=== PATIENT | female | born 1945 | race Caucasian/White ===

== ENCOUNTER 2018-01-24 13:45 | Outpatient (CLI) | payer MEDICARE | END 2018-01-24 13:46 | disposition home or self-care (01) | LOC: BICMAMMO 13:45 | PROVIDERS: ATTEND Internal Medicine | DX: Z12.31 Encounter for screening mammogram for malignant neoplasm of breast (principal); Z80.3 Family history of malignant neoplasm of breast | CPT/HCPCS: 77063; 77067 ==

== ENCOUNTER 2018-10-16 13:02 | Outpatient (CLI) | payer MEDICARE ==
--- NOTE | 2018-10-16 15:49 | MRI ---
MRI RIGHT SHOULDER WITHOUT CONTRAST 10/16/18 HISTORY: M25.511 - Right shoulder pain. COMPARISON: None. FINDINGS: Biceps tendon: There is extra-articular biceps tendinosis with interstitial tearing of the intra-nakul cular tendon. Labrum: There is tearing throughout the superior labrum anterior and posterior to the biceps tendon. Rotator cuff: Mild tendinosis of the supraspinatus and infraspinatus tendons. Mild bursal surface str ain supraspinatus tendon. No full thickness perforation. Bones: Subcortical cyst formation of the footprint of the greater tuberosity. Normal glenoid version. Old humeral neck fracture. There is lateral downsloping of the acromion near the subacromial space. Soft tissues: Low grade subacromial subdeltoid bursa effusion. Muscles: Muscle signal and bulk is normal. IMPRESSION: 1. Moderate intra-articular tendinosis biceps tendon with interstitial delamination type tear. 2. Superior labral tear anterior and posterior to the biceps labral anchor. 3. Mild downsloping of the acromion with narrowing of the subacrominal space with small subacrom ial subdeltoid bursal effusion and mild bursal surface fraying supraspinatus tendon. 4. Mild tendinosis supraspinatus and infraspinatus tendons without a full thickness perforation. 5. Healed humeral neck fracture. POS: TPC
== END 2018-10-16 13:03 | disposition home or self-care (01) ==
LOC: BICMRI 13:02
PROVIDERS: ATTEND Orthopaedic Surgery
DX: M25.511 Pain in right shoulder (principal); S43.401A Unspecified sprain of right shoulder joint, initial encounter; M75.91 Shoulder lesion, unspecified, right shoulder; M25.411 Effusion, right shoulder; Z87.81 Personal history of (healed) traumatic fracture

== ENCOUNTER 2018-12-14 00:12 | Outpatient (CLI) | payer MEDICARE ==
[2018-12-14 13:10] LABS: Bilirubin Negative (Negative); Blood, Urine Negative (Negative); Clarity CLEAR (Clear); Glucose, Urine (Dipstick) Negative (Negative); Leukocyte Negative (Negative); Nitrite Negative (Negative); Protein, Urine (Dipstick) Negative (Neg-Trace); Urobilinogen 0.2 mg/dL (0.2-1.0)
[2018-12-14 13:12] LABS: Bacteria/HPF None Seen HPF (None Seen); Hyaline Casts/LPF 0-3 HYALINE CAST LPF (0-3 Hyaline); Pathc Cast-AUWi Flag 0.13 (0-2.49); RBC/HPF 0-3 HPF (0-3); Squamous Epithelial None Seen HPF (0-3); WBC/HPF None Seen HPF (0-3)
== END 2018-12-14 00:13 | disposition home or self-care (01) ==
LOC: LABBT 00:12
PROVIDERS: ATTEND Orthopaedic Surgery
DX: Z01.818 Encounter for other preprocedural examination (principal); M17.12 Unilateral primary osteoarthritis, left knee
CPT/HCPCS: 81001; 87081; 93005; 93010

== ENCOUNTER 2018-12-19 12:01 | Outpatient (CLI) | payer MEDICARE ==
[2018-12-19 12:42] LABS: #Basophils 0.1 thou/uL (0.0-0.2); #Eosinphils 0.2 thou/uL (0.0-0.7); #Lymphocytes 2.8 thou/uL (1.20-3.40); #Monocytes 0.9 thou/uL (0.11-0.59); #Neutrophils 5.7 thou/uL (1.40-6.50); %Basophils 0.8 % (0.0-1.0); %Eosinophils 2.5 % (0.0-10.0); %Lymphocytes 28.8 % (21.0-51.0); %Neutrophils 58.9 % (42.0-75.0); Hemoglobin 14.7 g/dL (12.0-16.0); Mean Corpuscular HGB CONC 32.7 g/dL (32.0-36.0); Mean Corpuscular Hemoglobin 33.9 pg (27.0-31.0); Mean Platelet Volume 7.5 fL (7.4-10.4); Platelet Count 283 thou/uL (130-400); RBC Distribution Width 11.2 % (11.5-14.5); Red Blood Cell (RBC) Count 4.33 mill/uL (4.20-5.40); White Blood Cell (WBC) Count 9.7 thou/uL (4.8-10.8)
[2018-12-19 12:47] LABS: INR-International Normal Ratio 0.9; Prothrombin Time 12.3 SEC (12.0-14.7)
[2018-12-19 13:02] LABS: Anion Gap 15 mmol/L (10-20); BUN (Urea Nitrogen) 16 mg/dL (9.8-20.1); Calc. Creatinine Clearance 0 mL/min (70-130); Calcium 9.8 mg/dL (7.8-10.44); Carbon Dioxide 27 mmol/L (23-31); Chloride 100 mmol/L (98-107); Estimated GFR-MDRD 69; Glucose 72 mg/dL (83-110); Potassium 4.7 mmol/L (3.5-5.1); Sodium 137 mmol/L (136-145)
== END 2018-12-19 12:02 | disposition home or self-care (01) ==
LOC: LABBT 12:01
PROVIDERS: ATTEND Orthopaedic Surgery
DX: Z01.812 Encounter for preprocedural laboratory examination (principal); M17.12 Unilateral primary osteoarthritis, left knee
CPT/HCPCS: 80048; 85025; 85610

== ENCOUNTER 2018-12-26 05:35 | Day surgery (SDC) | payer MEDICARE ==
[2018-12-26] MEDS ORDERED: Tranexamic Acid 1,000 MG/10 ML VIAL ONE (06:04)
[2018-12-26] MEDS ORDERED: Sodium Chloride 0.9% 100 ML ONE (06:04)
[2018-12-26] MEDS ORDERED: Fentanyl 100 MCG/2 ML VIAL ONE ×3 (06:24→09:58)
[2018-12-26] MEDS ORDERED: Midazolam HCl 2 mg/2 ml Vial ONE (06:24)
[2018-12-26] MEDS ORDERED: HYDROcodone/Acetaminophen 10/325 mg Tablet PO PRN (06:49)
[2018-12-26] MEDS ORDERED: traMADol HCl 50 MG TAB PO PRN ×2 (06:49)
[2018-12-26] MEDS ORDERED: Zolpidem Tartrate 5 MG TAB PO PRN ×2 (06:49→06:57)
[2018-12-26] MEDS ORDERED: Promethazine HCl 25 MG/ML VIAL IM PRN ×3 (06:49→09:02)
[2018-12-26] MEDS ORDERED: Fentanyl 100 MCG/2 ML VIAL IV PRN (06:49)
[2018-12-26] MEDS ORDERED: Acetaminophen 325 MG TAB PO PRN (06:57)
[2018-12-26] MEDS ORDERED: diphenhydrAMINE 25 MG CAP PO PRN (06:57)
[2018-12-26] MEDS ORDERED: Morphine 10 MG/ML VIAL ONE (08:00)
[2018-12-26] MEDS ORDERED: Ondansetron HCl/PF 4 MG/2 ML Vial IVP PRN (09:02)
[2018-12-26] MEDS ORDERED: PACU-Morphine 4MG/ML VIAL SLOW IVP PRN (09:02)
[2018-12-26] MEDS ORDERED: Promethazine HCl 25 MG/ML VIAL SLOW IVP PRN (09:02)
[2018-12-26] MEDS ORDERED: Meperidine HCl/PF 25 MG/ML VIAL ONE (09:21)
--- NOTE | 2018-12-26 10:30 | RAD ---
LEFT KNEE TWO VIEWS: History: Total knee replacement, post-operative. FINDINGS/IMPRESSION: Post-operative changes are noted. Total knee arthroplasty is in good position and alignment. Soft tis luz air is present. POS: TPC
[2018-12-26] MEDS: CEFAZOLIN 2 GM in Premix Bag 1 BAG IVPB SCH ×2 (10:55→15:00)
[2018-12-26] MEDS: Sodium Chloride 0.9% 1,000 ML IV SCH ×2 (10:55→15:13)
[2018-12-26] MEDS: Aspirin 81 mg Enteric Coated Tablet PO SCH ×2 (10:55→21:53)
[2018-12-26] MEDS: Ferrous Gluconate 324 MG TAB PO SCH ×2 (10:56→21:54)
[2018-12-26] MEDS: Senokot S 8.6-50 MG TAB PO SCH ×2 (10:56→21:54)
[2018-12-26] MEDS: Multivitamin W/ Minerals 1 TAB PO SCH (10:56)
[2018-12-26] MEDS ORDERED: cloNIDine 0.1 MG TAB PO PRN (11:12)
[2018-12-26] MEDS ORDERED: Calcium Carbonate 500 MG ChewTAB PO PRN (11:12)
[2018-12-26] MEDS ORDERED: Sodium Chloride 0.65% Nasal 44 ML BOT EA NARE PRN (11:12)
[2018-12-26] MEDS ORDERED: Diabetic Tussin 200 MG/10 ML UDCUP PO PRN (11:12)
[2018-12-26] MEDS ORDERED: hydrALAZINE 20 MG/ML VIAL SLOW IVP PRN (11:12)
[2018-12-26] MEDS ORDERED: Benzonatate 100 MG CAP PO PRN (11:12)
[2018-12-26] MEDS ORDERED: Polyethylene Glycol 3350 17 GM Packet PO PRN (11:23)
--- NOTE | 2018-12-26 11:27 | PDOC.PN ---
- Subjective Encounter Start Date: 12/26/18 Encounter Start Time: 11:25 Subjective: Pt seen and examined. s/p Left TKR today.painin operated knee -: o/w feels well. no CP/SOB/fever/Cough/Abd pain/V/Diarrhea -: care discussed w family .PCP Dr. Swartz - Objective MAR Reviewed: Yes Vital Signs & Weight: Weight Weight 175 lb Phys Exam - Physical Examination Constitutional: NAD HEENT: PERRLA, moist MMs, sclera anicteric, oral pharynx no lesions Neck: no nodes, no JVD, supple, full ROM Respiratory: no wheezing, no rales, no rhonchi, clear to auscultation bilateral Cardiovascular: RRR, no significant murmur Gastrointestinal: soft, non-tender, no distention, positive bowel sounds Musculoskeletal: no edema, pulses present Left knee postop Neurological: non-focal, normal sensation, moves all 4 limbs Psychiatric: normal affect, A&O x 3 Skin: no rash Dx/Plan (1) HTN (hypertension) Code(s): I10 - ESSENTIAL (PRIMARY) HYPERTENSION Status: Chronic Comment: stable. restart Coreg .monitor.Add prn antihypertensives (2) HLD (hyperlipidemia) Code(s): E78.5 - HYPERLIPIDEMIA, UNSPECIFIED Status: Chronic Comment: restart statin. stable (3) Hypothyroid Code(s): E03.9 - HYPOTHYROIDISM, UNSPECIFIED Status: Chronic Comment: stable. restart levothyroxine (4) S/P total knee arthroplasty Code(s): Z96.659 - PRESENCE OF UNSPECIFIED ARTIFICIAL KNEE JOINT Status: Acute Qualifiers: Laterality: left Qualified Code(s): Z96.652 - Presence of left artificial knee joint Comment: Post-op pain control and rehab.ASA BID for DVT prophylaxis. FeSO4 BID prophylactically for post-op anemia - Plan plan discussed w/ family, PT/OT, incentive spirometry, out of bed/ambulate, DVT proph w/SCDs AM labs -: home meds restarted as above -: IM team will follow -: HD stable * . Review of Systems - Review of Systems Constitutional: negative: fever, chills, sweats, weakness, malaise, other ENT: negative: Ear Pain, Ear Discharge, Nose Pain, Nose Discharge, Nose Congestion, Mouth Pain, Mouth Swelling, Throat Pain, Throat Swelling, Other Respiratory: negative: Cough, Dry, Shortness of Breath, Hemoptysis, SOB with Excertion, Pleuritic Pain, Sputum, Wheezing Cardiovascular: negative: chest pain, palpitations, orthopnea, paroxysmal nocturnal dyspnea, edema, light headedness, other Gastrointestinal: negative: Nausea, Vomiting, Abdominal Pain, Diarrhea, Constipation, Melena, Hematochezia, Other Genitourinary: negative: Dysuria, Frequency, Incontinence, Hematuria, Retention , Other Musculoskeletal: negative: Neck Pain, Shoulder Pain, Arm Pain, Back Pain, Hand Pain, Leg Pain, Foot Pain, Other Skin: negative: Rash, Lesions, Juan Manuel, Bruising, Other Neurological: negative: Weakness, Numbness, Incoordination, Change in Speech, Confusion, Seizures, Other - Medications/Allergies Allergies/Adverse Reactions: Allergies Allergy/AdvReac Type Severity Reaction Status Date / Time No Known Allergies Allergy Unverified 12/14/18 13:01 Medications: Current Medications Acetaminophen (Tylenol) 650 mg PO Q4H PRN PRN Reason: Headache/Fever or Pain Hydrocodone Bitart/Acetaminophen ([place] 10/325) 1 tab PO Q4H PRN PRN Reason: Pain (1-3) Hydrocodone Bitart/Acetaminophen ([place] 10/325) 2 tab PO Q4H PRN PRN Reason: PAIN (4-6) Aspirin (Ecotrin) 81 mg PO BID [facility] Last Admin: 12/26/18 10:55 Dose: Not Given Atorvastatin Calcium (Lipitor) 20 mg PO HS [facility] Benzonatate (Tessalon) 100 mg PO Q6H PRN PRN Reason: Cough Calcium Carbonate (Tums) 1,000 mg PO Q4H PRN PRN Reason: Heartburn or Indigestion Carvedilol (Coreg) 6.25 mg PO BID [facility] Clonidine (Catapres) 0.1 mg PO Q4H PRN PRN Reason: SBP > 160____ Diphenhydramine HCl (Benadryl) 25 mg PO Q6H PRN PRN Reason: Itching Fentanyl (Sublimaze) 50 mcg IV Q1H PRN PRN Reason: BREAKTHROUGH PAIN Fentanyl (Pacu-Sublimaze) 50 mcg SLOW IVP Q10MIN PRN PRN Reason: Moderate to Severe Pain (6-10) Stop: 12/26/18 12:03 Ferrous Gluconate (Fergon) 324 mg PO BID [facility] Last Admin: 12/26/18 10:56 Dose: Not Given Guaifenesin (Robitussin Sf) 200 mg PO Q4H PRN PRN Reason: Cough Hydralazine HCl (Apresoline) 10 mg SLOW IVP Q4H PRN PRN Reason: SBP > 180 and HR < 70 Ropivacaine 250 ml/ Device 250 mls @ 0 mls/hr NERVE BLCK INF [facility] Cefazolin Sodium/Dextrose 2 gm (/ Device) 50 mls @ 100 mls/hr IVPB Q8H [facility] Stop: 12/26/18 15:29 Last Admin: 12/26/18 10:55 Dose: Not Given Sodium Chloride (Normal Saline 0.9%) 1,000 mls @ 100 mls/hr IV .Q10H [facility] Last Admin: 12/26/18 10:55 Dose: Not Given Iron/Minerals/Multivitamins (Theragran M) 1 tab PO DAILY [facility] Last Admin: 12/26/18 10:56 Dose: Not Given Ketorolac Tromethamine (Toradol) 15 mg IVP Q6H PRN PRN Reason: Pain Stop: 12/31/18 10:33 Levothyroxine Sodium (Synthroid) 100 mcg PO 0600 [facility] Morphine Sulfate (Pacu-Morphine) 4 mg SLOW IVP ONE PRN PRN Reason: Moderate to Severe Pain (6-10) Stop: 12/26/18 12:03 Ondansetron HCl (Zofran) 4 mg IVP Q6H PRN PRN Reason: Nausea/Vomiting Ondansetron HCl (Zofran) 4 mg IVP Q6H PRN PRN Reason: Nausea/Vomiting Ondansetron HCl (Pacu-Zofran) 4 mg IVP ONE PRN PRN Reason: Nausea/Vomiting Stop: 12/26/18 12:02 Polyethylene Glycol (Miralax) 17 gm PO DAILY PRN PRN Reason: Constipation Promethazine HCl (Phenergan) 12.5 mg IM Q4H PRN PRN Reason: Nausea Promethazine HCl (Phenergan) 12.5 mg IM Q4H PRN PRN Reason: Nausea/Vomiting Promethazine HCl (Pacu-Phenergan) 6.25 mg SLOW IVP ONE PRN PRN Reason: Nausea/Vomiting Stop: 12/26/18 12:02 Promethazine HCl (Pacu-Phenergan) 6.25 mg IM ONE PRN PRN Reason: Nausea/Vomiting Stop: 12/26/18 12:02 Senna/Docusate Sodium (Senokot S) 2 tab PO BID [facility] Last Admin: 12/26/18 10:56 Dose: Not Given Sodium Chloride (Flush - Normal Saline) 10 ml IVF PRN PRN PRN Reason: Saline Flush Sodium Chloride ([place] Nasal [place] 0.65%) 0 ml EA NARE QIDPRN PRN PRN Reason: Nasal Congestion Tramadol HCl (Ultram) 50 mg PO Q6H PRN PRN Reason: Mild Pain (1-3) Tramadol HCl (Ultram) 100 mg PO Q6H PRN PRN Reason: Moderate Pain 4-6 Zolpidem Tartrate (Ambien) 5 mg PO HSPRN PRN PRN Reason: Insomnia Zolpidem Tartrate (Ambien) 5 mg PO HSPRN PRN PRN Reason: Insomnia
[2018-12-26] MEDS ORDERED: Ketorolac Tromethamine 30 MG/ML VIAL IVP SCH (14:00)
[2018-12-26] MEDS ORDERED: Ondansetron PF 4 MG/2 ML Vial ONE (15:28)
[2018-12-26] MEDS ORDERED: Lidocaine 1% PF 5 ML VIAL ONE (15:28)
[2018-12-26] MEDS ORDERED: Ketorolac Tromethamine 30 MG/ML VIAL ONE (15:28)
[2018-12-26] MEDS ORDERED: PROPOFOL 200 MG/20 ML VIAL ONE (15:28)
--- NOTE | 2018-12-26 15:36 | OP ---
DATE OF PROCEDURE: 12/26/2018 This is Josué Mensah PA-C dictating a report for Sid Holliday MD. PREOPERATIVE DIAGNOSIS: End-stage tricompartmental osteoarthritis, left knee. POSTOPERATIVE DIAGNOSIS: End-stage tricompartmental osteoarthritis, left knee. OPERATIVE PROCEDURE: Cemented cruciate sparing computer-assisted navigated left total knee arthroplasty. AUTOMATIC GRINDING MACHINE OPERATOR: Josué Mensah PA-C ANESTHESIA: General via LMA augmented with indwelling adductor canal block and a single shot sciatic block. COMPONENTS USED: [employer] triathlon cemented size 3 cruciate sparing femoral component with a primary femoral component with a cemented cruciate sparing primary size 3 tibial base plate, 9 mm polyethylene fixed bearing insert, A29 patella button. FINDINGS: End-stage severe degenerative tricompartmental disease, [id number] arthrosis, periarticular osteophyte formation, large serous effusion, hypertrophic synovium, and changes consistent with degenerative genu varum. ESTIMATED BLOOD LOSS: Less than 100. INPUT: 1200 crystalloid. OUTPUT: 500 mL clear yellow urine. DRAINS: None. SPECIMENS: None. COMPLICATION: None. COUNTS: Correct. TOURNIQUET TIME: 57 minutes at 300 mmHg. INDICATION FOR SURGERY: Latasha is a 73-year-old white female, who has had progressive left knee pain and problem standing walking for the last 5 to 7 years. She has failed conservative management and elected to proceed with total knee arthroplasty as definitive treatment of her pain. PROCEDURE IN DETAIL: After informed consent was obtained in the preoperative holding area, the patient was taken to the operative suite where general anesthesia was induced. Once adequate level of general anesthesia was obtained, the patient was positioned and a well-padded tourniquet was placed around the left proximal thigh. The left lower extremity was then prepped and draped in the usual sterile fashion. Prior to exsanguination, a time-out was called and all members of the surgical team agreed upon site, surgeon, and patient. The extremity was then exsanguinated and the tourniquet was raised. A midline longitudinal incision was then made directly over the patella extending 2 fingerbreadths above the superior pole of the patella and 2 fingerbreadths inferior to the inferior patellar pole of the patella. Deeper subcutaneous layers were dissected sharply and local bleeding was controlled with Bovie electrocautery. A quad tendon longitudinal split was then made sharply and a median parapatellar arthrotomy was carried out both sharp and with Bovie electrocautery, carried down to 1 fingerbreadth medial to the tibial tubercle. The knee was then placed into flexion and the patella was everted nicely, and a copious fat pad ectomy was performed, allowing for greater exposure of the tibia. The computer-assisted distal femoral fiducial was then placed and pinned firmly, and the distal femoral cutting guide was pinned firmly into place. The oscillating saw was then used to remove the appropriate amount of bone. The 4- in-1 cutting block was then placed on the distal femur and the oscillating saw was used to remove the appropriate amount of bone off the anterior, posterior, and chamfer cuts. After completion of bone cuts, the anterior cruciate ligament was resected sharply and the posterior cruciate ligament retractor was placed and the tibia was subluxed for better exposure. Partial meniscectomies were carried out, and the tibial computer-assisted fiducial was pinned, and the cutting guide was placed. Oscillating saw was then used to remove the bone, with Hohmann retractors used to take care and protect the collateral ligaments. After the tibial resection was performed, a laminar button and buckle maker was placed in between the freshened bone cuts. The knee placed at 90 degrees and further bilateral meniscectomies were carried out , and the curved osteotome and curettage were used to remove any excess bone spurs in the posterior compartment. The trial femoral component, tibial baseplate were placed with the appropriate polyethylene trial insert with an appropriate polyethylene spacer and patellar button. The knee was taken through full range of motion with flexion and extension from 0 to 90 degrees and patellar broach squarely in the trochlea without any squinting or subluxation noted. The knee was also stable to varus and valgus stressing at 0, 15, 45, and 90 degrees of flexion. The drawer was negative. All trial components were then removed and the keel punch was used to provide the appropriate defect in the tibia with a mallet. The freshened bone cuts were copiously irrigated with pulsatile lavage of about 1.5 L to remove all excess debris. The freshened bone cuts were then dried with suction and lap sponge. The knee was placed in flexion and retractors were placed to provide access to all bone cuts. Tobramycin-impregnated methyl methacrylate cement was then placed on the freshened bone cuts and implants which were malleted firmly into place. Curettage and [place] elevators were used to remove any excess bone cement. The knee was placed into full extension and the patellar button was placed under compression, and the cement was allowed to cure. Once completed, the components were again taken through full range of motion and copious irrigation of the knee was carried out with another liter of normal saline. All components were inspected fully with full range of motion and varus and valgus stressing. There was no laxity noted and full extension was observed clinically. Primary closure was accomplished with #2 interrupted Vicryl stitch of the arthrotomy defect. This was oversewn with a #2 running Quill barbed stitch. The subcutaneous layer was then closed with a running 0 barbed Monocryl stitch and skin closure accomplished with a running subcuticular 3-0 Monocryl barbed Quill stitch and augmented with cement on the skin. Tourniquet was lowered. Good spontaneous return of distal pulses was noted clinically and a sterile dressing was applied to the incision. The procedure was terminated without any complications. The patient was awakened in the operative suite and taken to the recovery room in stable condition. Job ID: [id number] [facility]
[2018-12-26] MEDS ORDERED: Ropivacaine 0.2% HCl/PF (40 MG/20 ML VIAL) ONE (16:01)
[2018-12-26] MEDS ORDERED: Ropivacaine 0.5% HCl/PF (150 MG/30 ML VIAL) ONE (16:01)
[2018-12-26] MEDS: Ketorolac Tromethamine 30 MG/ML VIAL IVP PRN (18:44)
[2018-12-26] MEDS: Carvedilol 6.25 MG TAB PO SCH (21:53)
[2018-12-26] MEDS: Atorvastatin Calcium 20 MG TAB PO SCH (21:54)
[2018-12-26] MEDS: HYDROcodone/Acetaminophen 10/325 mg Tablet PO PRN (21:55)
[2018-12-26] MEDS: Ondansetron PF 4 MG/2 ML Vial IVP PRN (22:00)
[2018-12-27] MEDS: Sodium Chloride 0.9% 1,000 ML IV SCH ×3 (02:07→23:05)
[2018-12-27] MEDS: HYDROcodone/Acetaminophen 10/325 mg Tablet PO PRN ×3 (03:40→21:26)
[2018-12-27 05:27] LABS: Hemoglobin 11.5 g/dL (12.0-16.0); Mean Corpuscular HGB CONC 33.1 g/dL (32.0-36.0); Mean Corpuscular Hemoglobin 34.5 pg (27.0-31.0); Mean Platelet Volume 7.8 fL (7.4-10.4); Platelet Count 213 thou/uL (130-400); RBC Distribution Width 11.3 % (11.5-14.5); Red Blood Cell (RBC) Count 3.32 mill/uL (4.20-5.40); White Blood Cell (WBC) Count 10.2 thou/uL (4.8-10.8)
[2018-12-27 05:42] LABS: Anion Gap 13 mmol/L (10-20); BUN (Urea Nitrogen) 7 mg/dL (9.8-20.1); Calc. Creatinine Clearance 84 mL/min (70-130); Calcium 8.3 mg/dL (7.8-10.44); Carbon Dioxide 25 mmol/L (23-31); Chloride 103 mmol/L (98-107); Estimated GFR-MDRD 74; Glucose 112 mg/dL (83-110); Potassium 3.6 mmol/L (3.5-5.1); Sodium 137 mmol/L (136-145)
[2018-12-27] MEDS: Levothyroxine Sodium 100 MCG TAB PO SCH (07:14)
[2018-12-27] MEDS: Ketorolac Tromethamine 30 MG/ML VIAL IVP PRN (08:35)
[2018-12-27] MEDS: Aspirin 81 mg Enteric Coated Tablet PO SCH ×2 (08:36→21:25)
[2018-12-27] MEDS: Senokot S 8.6-50 MG TAB PO SCH ×2 (08:36→21:25)
[2018-12-27] MEDS: Ferrous Gluconate 324 MG TAB PO SCH ×2 (08:38→21:25)
[2018-12-27] MEDS: Multivitamin W/ Minerals 1 TAB PO SCH (08:38)
[2018-12-27] MEDS: Carvedilol 6.25 MG TAB PO SCH ×2 (08:44→21:26)
--- NOTE | 2018-12-27 10:16 | PRG ---
DATE OF SERVICE: 12/27/2018 SUBJECTIVE: Latasha is a 73-year-old white female, who is postop day 1 from a left total knee arthroplasty. She has very little in way of complaints. She has only ambulated about 5 to 7 feet yesterday evening. Her pain has been relatively well controlled with the indwelling blocks and oral medications to this point. OBJECTIVE: VITAL SIGNS: Temperature 98.4, pulse 81, respiratory rate 16, blood pressure 117/74. GENERAL: She is alert and oriented to person, place, time, and situation, grossly nonfocal. No apparent distress. Appropriate and responsive with examiner. EXTREMITIES: Visual inspection of the left lower extremity demonstrates her dressing to be intact. She has dense block, but still has 5/5 strength in dorsiflexion, inversion, and eversion. Good sensation is noted. No strike through. No erythema. LABORATORY DATA: Hemoglobin and hematocrit 11.5 and 34.7. IMPRESSION: A 73-year-old white female, postoperative day 1 left total knee arthroplasty, doing well. 1. Slow progress with activities of daily living and independence. 2. Hypertension. 3. Hyperlipidemia. 4. Hypothyroidism. PLAN: Continue current care. Probable discharge on Tuesday. Job ID: [id number]
[2018-12-27] MEDS: Ropivacaine HCl/PF 250 ML in Premix Bag 1 BAG NERVE BLCK SCH (10:21)
--- NOTE | 2018-12-27 16:18 | PDOC.PN ---
- Subjective Encounter Start Date: 12/27/18 Encounter Start Time: 07:00 Pt seen for followup re: hypertension. Reports blood pressure was low earlier today. - Objective MAR Reviewed: Yes Vital Signs & Weight: Vital Signs (12 hours) Temp Pulse Resp BP BP Pulse Ox 12/27/18 12:07 97.9 F 80 16 124/79 95 12/27/18 08:45 98.4 F 81 16 117/74 93 L 12/27/18 08:44 110/64 12/27/18 04:23 99.5 F 75 20 95/54 L 93 L Weight Admit Weight 175 lb Weight 175 lb I&O: 12/26/18 12/27/18 12/28/18 06:59 06:59 06:59 Intake Total 2502 Output Total 1400 Balance 1102 Result Diagrams: 12/28/18 05:08 12/27/18 04:30 Additional Labs: Labs reviewed by me Phys Exam - Physical Examination Constitutional: NAD HEENT: moist MMs Neck: supple Respiratory: clear to auscultation bilateral Cardiovascular: RRR Gastrointestinal: soft s/p L knee surgery Neurological: moves all 4 limbs Psychiatric: normal affect Dx/Plan (1) HTN (hypertension) Code(s): I10 - ESSENTIAL (PRIMARY) HYPERTENSION Status: Chronic Comment: Monitor vital signs, titrate antihypertensives as needed (2) HLD (hyperlipidemia) Code(s): E78.5 - HYPERLIPIDEMIA, UNSPECIFIED Status: Chronic Comment: continue statin (3) Hypothyroid Code(s): E03.9 - HYPOTHYROIDISM, UNSPECIFIED Status: Chronic Comment: continue synthroid (4) Arthritis Code(s): M19.90 - UNSPECIFIED OSTEOARTHRITIS, UNSPECIFIED SITE Status: Chronic Comment: s/p L knee surgery. DVT prophylaxis and pain management per orthopedic surgery - Plan * . Review of Systems - Review of Systems Cardiovascular: negative: chest pain, palpitations, orthopnea, paroxysmal nocturnal dyspnea, edema, light headedness Gastrointestinal: negative: Nausea, Vomiting, Abdominal Pain, Diarrhea, Constipation, Melena, Hematochezia - Medications/Allergies Allergies/Adverse Reactions: Allergies Allergy/AdvReac Type Severity Reaction Status Date / Time No Known Allergies Allergy Unverified 12/14/18 13:01 Medications: Current Medications Acetaminophen (Tylenol) 650 mg PO Q4H PRN PRN Reason: Headache/Fever or Pain Hydrocodone Bitart/Acetaminophen ([place] 10/325) 1 tab PO Q4H PRN PRN Reason: Pain (1-3) Hydrocodone Bitart/Acetaminophen ([place] 10/325) 2 tab PO Q4H PRN PRN Reason: PAIN (4-6) Last Admin: 12/27/18 15:14 Dose: 2 tab Aspirin (Ecotrin) 81 mg PO BID [facility] Last Admin: 12/27/18 08:36 Dose: 81 mg Atorvastatin Calcium (Lipitor) 20 mg PO HS [facility] Last Admin: 12/26/18 21:54 Dose: 20 mg Benzonatate (Tessalon) 100 mg PO Q6H PRN PRN Reason: Cough Calcium Carbonate (Tums) 1,000 mg PO Q4H PRN PRN Reason: Heartburn or Indigestion Carvedilol (Coreg) 6.25 mg PO BID [facility] Clonidine (Catapres) 0.1 mg PO Q4H PRN PRN Reason: SBP > 160____ Diphenhydramine HCl (Benadryl) 25 mg PO Q6H PRN PRN Reason: Itching Fentanyl (Sublimaze) 50 mcg IV Q1H PRN PRN Reason: BREAKTHROUGH PAIN Ferrous Gluconate (Fergon) 324 mg PO BID [facility] Last Admin: 12/27/18 08:38 Dose: Not Given Guaifenesin (Robitussin Sf) 200 mg PO Q4H PRN PRN Reason: Cough Hydralazine HCl (Apresoline) 10 mg SLOW IVP Q4H PRN PRN Reason: SBP > 180 and HR < 70 Ropivacaine 250 ml/ Device 250 mls @ 0 mls/hr NERVE BLCK INF [facility] Last Admin: 12/27/18 10:21 Dose: 250 mls Sodium Chloride (Normal Saline 0.9%) 1,000 mls @ 100 mls/hr IV .Q10H [facility] Last Admin: 12/27/18 10:25 Dose: Not Given Iron/Minerals/Multivitamins (Theragran M) 1 tab PO DAILY [facility] Last Admin: 12/27/18 08:38 Dose: Not Given Ketorolac Tromethamine (Toradol) 15 mg IVP Q6H PRN PRN Reason: Pain Stop: 12/31/18 10:33 Last Admin: 12/27/18 08:35 Dose: 15 mg Levothyroxine Sodium (Synthroid) 100 mcg PO 0600 [facility] Last Admin: 12/27/18 07:14 Dose: 100 mcg Ondansetron HCl (Zofran) 4 mg IVP Q6H PRN PRN Reason: Nausea/Vomiting Ondansetron HCl (Zofran) 4 mg IVP Q6H PRN PRN Reason: Nausea/Vomiting Last Admin: 12/26/18 22:00 Dose: 4 mg Polyethylene Glycol (Miralax) 17 gm PO DAILY PRN PRN Reason: Constipation Promethazine HCl (Phenergan) 12.5 mg IM Q4H PRN PRN Reason: Nausea Promethazine HCl (Phenergan) 12.5 mg IM Q4H PRN PRN Reason: Nausea/Vomiting Senna/Docusate Sodium (Senokot S) 2 tab PO BID [facility] Last Admin: 12/27/18 08:36 Dose: 2 tab Sodium Chloride (Flush - Normal Saline) 10 ml IVF PRN PRN PRN Reason: Saline Flush Sodium Chloride ([place] Nasal [place] 0.65%) 0 ml EA NARE QIDPRN PRN PRN Reason: Nasal Congestion Tramadol HCl (Ultram) 50 mg PO Q6H PRN PRN Reason: Mild Pain (1-3) Tramadol HCl (Ultram) 100 mg PO Q6H PRN PRN Reason: Moderate Pain 4-6 Zolpidem Tartrate (Ambien) 5 mg PO HSPRN PRN PRN Reason: Insomnia Zolpidem Tartrate (Ambien) 5 mg PO HSPRN PRN PRN Reason: Insomnia
[2018-12-27] MEDS: Atorvastatin Calcium 20 MG TAB PO SCH (21:24)
[2018-12-28] MEDS: HYDROcodone/Acetaminophen 10/325 mg Tablet PO PRN ×3 (04:46→20:53)
[2018-12-28] MEDS: Levothyroxine Sodium 100 MCG TAB PO SCH (04:47)
[2018-12-28 05:29] LABS: Hemoglobin 11.8 g/dL (12.0-16.0); Mean Corpuscular Hemoglobin 34.3 pg (27.0-31.0); Mean Platelet Volume 7.7 fL (7.4-10.4); Platelet Count 188 thou/uL (130-400); RBC Distribution Width 11.2 % (11.5-14.5); Red Blood Cell (RBC) Count 3.43 mill/uL (4.20-5.40); White Blood Cell (WBC) Count 9.4 thou/uL (4.8-10.8)
[2018-12-28] MEDS: Ondansetron PF 4 MG/2 ML Vial IVP PRN ×3 (07:18→21:57)
[2018-12-28] MEDS: Ferrous Gluconate 324 MG TAB PO SCH ×2 (09:58→20:03)
[2018-12-28] MEDS: Aspirin 81 mg Enteric Coated Tablet PO SCH ×2 (09:59→20:04)
[2018-12-28] MEDS: Carvedilol 6.25 MG TAB PO SCH ×2 (09:59→20:06)
[2018-12-28] MEDS: Multivitamin W/ Minerals 1 TAB PO SCH (09:59)
[2018-12-28] MEDS: Senokot S 8.6-50 MG TAB PO SCH ×2 (09:59→20:09)
[2018-12-28] MEDS: Sodium Chloride 0.9% 1,000 ML IV SCH ×2 (10:00→19:49)
[2018-12-28] MEDS: Ketorolac Tromethamine 30 MG/ML VIAL IVP PRN (10:10)
--- NOTE | 2018-12-28 11:48 | PRG ---
DATE OF SERVICE: 12/28/2018 SUBJECTIVE: Latasha is postop day #2 from a left total knee arthroplasty. She has been slow at progressing toward activities of daily living and independence, but her pain has been relatively well controlled on oral medicines with block. OBJECTIVE: VITAL SIGNS: Temperature 98.2, pulse 86, respiratory rate 16, O2 saturation 93% on room air, and blood pressure is 132/79. GENERAL: She is alert and oriented to person, place, time, and situation. Nonfocal. EXTREMITIES: Her incision is clean and closed without any erythema. No strikethrough. She is neurovascularly intact in both lower extremities. IMPRESSION: 1. Postop day #2 left total knee arthroplasty. 2. Hypertension. 3. Hyperlipidemia. 4. Hypothyroidism. 5. Osteoarthritis. PLAN: Continue current care. Continue efforts at ADLs and independence. Discharge home tomorrow morning. Job ID: [id number]
[2018-12-28 13:33] VITALS: BMI 33.2
[2018-12-28] MEDS: Ropivacaine HCl/PF 250 ML in Premix Bag 1 BAG NERVE BLCK SCH (13:55)
--- NOTE | 2018-12-28 19:30 | PDOC.EVN ---
Event Note - Event Note Event Note: Discussed with orthopedic surgery service earlier today. Pt continues to be clinically stable, will sign off. Please reconsult if needed.
[2018-12-28] MEDS: Atorvastatin Calcium 20 MG TAB PO SCH (20:03)
[2018-12-29] MEDS: HYDROcodone/Acetaminophen 10/325 mg Tablet PO PRN ×2 (04:27→11:02)
[2018-12-29] MEDS: Ondansetron PF 4 MG/2 ML Vial IVP PRN ×2 (04:28→11:03)
[2018-12-29] MEDS: Levothyroxine Sodium 100 MCG TAB PO SCH (04:29)
[2018-12-29] MEDS: Sodium Chloride 0.9% 1,000 ML IV SCH ×2 (05:39→15:29)
[2018-12-29] MEDS: Carvedilol 6.25 MG TAB PO SCH (08:25)
[2018-12-29] MEDS: Aspirin 81 mg Enteric Coated Tablet PO SCH (08:25)
[2018-12-29] MEDS: Ferrous Gluconate 324 MG TAB PO SCH (08:25)
[2018-12-29] MEDS: Multivitamin W/ Minerals 1 TAB PO SCH (08:25)
[2018-12-29] MEDS: Senokot S 8.6-50 MG TAB PO SCH (08:26)
[2018-12-29 12:57] VITALS: BP 144/66; TEMP 97.7
== END 2018-12-29 16:27 | disposition home or self-care (01) ==
LOC: SDC 05:35 → SJJU 10:35 → SDC 12-29 16:27
PROVIDERS: ATTEND Orthopaedic Surgery
PROC: 0SRD0J9 Replacement of Left Knee Joint with Synthetic Substitute, Cemented, Open Approach (ICD-10-PCS; principal; 2018-12-26)
PROC: 8E0YXBZ Computer Assisted Procedure of Lower Extremity (ICD-10-PCS; 2018-12-26)
PROC: 3E0T3BZ Introduction of Anesthetic Agent into Peripheral Nerves and Plexi, Percutaneous Approach (ICD-10-PCS; 2018-12-26)
PROC: 3E0T3BZ Introduction of Anesthetic Agent into Peripheral Nerves and Plexi, Percutaneous Approach (ICD-10-PCS; 2018-12-26)
DX: M17.12 Unilateral primary osteoarthritis, left knee (principal); G89.18 Other acute postprocedural pain; E03.9 Hypothyroidism, unspecified; K21.9 Gastro-esophageal reflux disease without esophagitis; E78.00 Pure hypercholesterolemia, unspecified; I10 Essential (primary) hypertension; E78.5 Hyperlipidemia, unspecified; Z87.891 Personal history of nicotine dependence; Z79.899 Other long term (current) drug therapy; Z96.651 Presence of right artificial knee joint
CPT/HCPCS: 20985; 27447; 64445; 64448; 73560; 80048; 85027; 86850; 86900; 86901; 97110 ×4; 97116 ×4; 97139 ×3; 97150; 97530 ×3; C1713; C1776; 36415; J0690; J1885; J2001; J2175; J2250; J2270; J2405; J2704; J2795; J3010; J3370; J3490

== ENCOUNTER 2019-03-07 11:29 | Outpatient (CLI) | payer MEDICARE ==
--- NOTE | 2019-03-07 15:29 | MMO ---
Bilateral MAMMO Bilat Screen [facility]. CLINICAL HISTORY: Patient is 73 years old and is seen for screening. The patient has the following family history of breast cancer: mother, at age 45. The patient has no personal history of cancer. VIEWS: The views performed were: bilateral craniocaudal with tomosynthesis and bilateral mediolateral oblique with tomosynthesis. FILMS COMPARED: The present examination has been compared to prior imaging studies performed at [facility] on 09/18/2014, 12/25/2015, 01/13/2017 and 01/24/2018. MAMMOGRAM FINDINGS: There are scattered fibroglandular densities. There are stable benign appearing calcifications seen in both breasts. There are no suspicious masses, suspicious calcifications, or new areas of architectural distortion. IMPRESSION: THERE IS NO MAMMOGRAPHIC EVIDENCE OF MALIGNANCY. A ROUTINE FOLLOW-UP MAMMOGRAM IN 1 YEAR IS RECOMMENDED. THE RESULTS OF THIS EXAM WERE SENT TO THE PATIENT. ACR BI-RADS Category 2 - Benign finding MAMMOGRAPHY NOTE: 1. A negative mammogram report should not delay a biopsy if a dominant of clinically suspicious mass is present. 2. Approximately 10% to 15% of breast cancers are not detected by mammography. 3. Adenosis and dense breasts may obscure an underlying neoplasm. Reported by: JO ANN NUNEZ MD Electonically Signed: [id number]
== END 2019-03-07 11:30 | disposition home or self-care (01) ==
LOC: BICMAMMO 11:29
PROVIDERS: ATTEND Internal Medicine
DX: Z12.31 Encounter for screening mammogram for malignant neoplasm of breast (principal); Z80.3 Family history of malignant neoplasm of breast
CPT/HCPCS: 77063; 77067

== ENCOUNTER 2020-04-02 13:29 | Outpatient (CLI) | payer MEDICARE ==
--- NOTE | 2020-04-02 14:01 | MMO ---
Bilateral MAMMO Bilat Screen [facility]. CLINICAL HISTORY: Patient is 74 years old and is seen for screening. The patient has the following family history of breast cancer: mother, at age 45. The patient has no personal history of cancer. VIEWS: The views performed were: bilateral craniocaudal with tomosynthesis and bilateral mediolateral oblique with tomosynthesis. FILMS COMPARED: The present examination has been compared to prior imaging studies performed at [facility] on 12/25/2015, 01/13/2017, 01/24/2018 and 03/07/2019. This study has been interpreted with the assistance of computer-aided detection. MAMMOGRAM FINDINGS: There are scattered fibroglandular densities. There are stable benign appearing calcifications seen in both breasts. There are no suspicious masses, suspicious calcifications, or new areas of architectural distortion. IMPRESSION: THERE IS NO MAMMOGRAPHIC EVIDENCE OF MALIGNANCY. A ROUTINE FOLLOW-UP MAMMOGRAM IN 1 YEAR IS RECOMMENDED. THE RESULTS OF THIS EXAM WERE SENT TO THE PATIENT. ACR BI-RADS Category 2 - Benign finding MAMMOGRAPHY NOTE: 1. A negative mammogram report should not delay a biopsy if a dominant of clinically suspicious mass is present. 2. Approximately 10% to 15% of breast cancers are not detected by mammography. 3. Adenosis and dense breasts may obscure an underlying neoplasm. Reported by: DONA ALEXANDRE MD Electonically Signed: [id number]
== END 2020-04-02 13:30 | disposition home or self-care (01) ==
LOC: BICMAMMO 13:29
PROVIDERS: ATTEND Internal Medicine
DX: Z12.31 Encounter for screening mammogram for malignant neoplasm of breast (principal); Z80.3 Family history of malignant neoplasm of breast
CPT/HCPCS: 77063; 77067